=== PATIENT | male | born 1990 | race Caucasian/White ===

== ENCOUNTER 2017-01-24 13:54 | Emergency (ER) | payer SELFPAY ==
--- NOTE | ~2017-01-24 | CT2 ---
[facility] A Service of [facility] RADIOLOGY TEXT RESULTS PATIENT: GEORGIA ARANA LOCATION: SED : [birth year] UNIT #: [id number] AGE: [address]: Steve Burns MD SEX: M ORDER DR: [id number] [place] [id number] MR#: [id number] Acc #: [id number] NAME: GEORGIA ARANA : 1990 SEX: M STUDY DATE/TIME: 01/24/2017 15:28 UNIT: SED ROOM: STUDY DESCRIPTION: CT Abd and Pelv W Cont Attending Physician: Steve Burns M.D. Ordering Physician: Steve Burns M.D. Primary Care Physician: No Primary Care Physician MEDICAL IMAGING REPORT This report is preliminary unless electronic signature is present. EXAM CT abdomen and pelvis with contrast INDICATIONS Umbilical region pain since last night. PROCEDURE Contrast-enhanced CT abdomen and pelvis. This CT exam was performed with one or more of the following radiation dose reduction techniques: automatic exposure control, adjustment of mA and/or kV according to patient size, and iterative reconstruction. COMPARISON None FINDINGS ABDOMEN WITH CONTRAST: Included lung bases are clear. Liver, spleen, kidneys, adrenal glands, pancreas, gallbladder unremarkable. Bowel loops are nondilated. Appendix is normal. PELVIS WITH CONTRAST: No pelvic mass or fluid. No evidence for umbilical hernia. No aggressive appearing bone lesion. IMPRESSION 1. No acute findings. 2. Normal appendix. 3. No evidence for umbilical hernia or periumbilical inflammatory change. Dictated by... Kelvin Del Real M.D. [facility] A Service of [facility] RADIOLOGY TEXT RESULTS PATIENT: GEORGIA ARANA LOCATION: SED : [birth year] UNIT #: [id number] AGE: [address]: Steve Burns MD SEX: M ORDER DR: THIS IS AN ELECTRONICALLY VERIFIED REPORT Kelvin Del Real M.D. at 01/27/2017 7:11 AM Maki TD: 01/24/2017 18:28 JOB #: [id number] MEDICAL IMAGING REPORT Page 1 of 1
[~2017-01-24 13:54] MED LIST: AMOXICILLIN PO; AMOXICILLIN875 MG PO; BACTRIM DS TABL1 TA1 PO; IBUPROFEN800 MG PO; ILOTYCIN1 G1 OD; KEFLEX PO; MEDROL4 MG/DOSE- PO; MOTRIN100 MG/5 M PO; MOTRIN600 M1 PO; NO MEDICATIONS; NORCO1 TAB 10/3 PO; PERCOCET 5/321 UDTAB PO; ROBAXIN 750750 M1 PO; ROBITUSSIN COUG1 CAP PO; ROXICODONE5 MG/5 ML PO; TYLENOL325 MG/10. PO; ZOFRAN PO
[2017-01-24 14:42] LABS: BASOPHIL% 0.5 % (0-2.5); DIFF IND NO; EOSINOPHIL# 0.2 X10e3 (0-0.7); EOSINOPHIL% 1.8 % (0.0-7.0); HEMATOCRIT 46.2 % (38.0-50.0); HEMOGLOBIN 16.3 gm/dL (13.0-16.0); LYMPHOCYTE# 2.6 X10e3 (1.0-3.5); LYMPHOCYTE% 29.5 % (17.0-45.0); MEAN CELL VOLUME 87.2 FL (83-96); MEAN CORPUSCULAR HEMOGLOBIN 30.7 PG (28-34); MEAN CORPUSCULAR HGB CONC 35.2 g/dL (30-36); MEAN PLATELET VOLUME 8.6 FL (6.5-11.5); MONOCYTE# 0.7 X10e3 (0-1.0); MONOCYTE% 8.2 % (3.0-12.0); NEUTROPHIL# 5.2 X10e3 (1.5-7.1); PLATELET COUNT 292 X10e3 (140-420); RED BLOOD COUNT 5.29 X10e (3.90-5.60); RED CELL DISTRIBUTION WIDTH 12.3 % (11.0-15.5); WHITE BLOOD COUNT 8.7 X10e3 (4.0-10.5)
[2017-01-24 14:50] LABS: URINE SOURCE CLEAN CATCH
[2017-01-24 14:56] LABS: URINE APPEARANCE CLEAR; URINE BILIRUBIN NEG (NEG); URINE BLOOD NEG (NEG); URINE COLOR YELLOW; URINE GLUCOSE NEG (NORM); URINE KETONE NEG (NEG); URINE LEUKOCYTE ESTERASE NEG (NEG); URINE NITRATE NEG (NEG); URINE PH 6.5 (5-8); URINE PROTEIN NEG (NEG)
[2017-01-24 14:57] LABS: MICRO INDICATED? NO
[2017-01-24 14:58] LABS: ALBUMIN SERUM 4.9 g/dL (3.5-5.0); BILIRUBIN, DIRECT 0.1 mg/dL (0.0-0.2); BILIRUBIN,INDIRECT 0.6 mg/dL (0.0-0.9); BILIRUBIN,TOTAL 0.7 mg/dL (0.2-2.0); BUN/CREATININE RATIO 16.66; CALCIUM SERUM 9.3 mg/dL (8.4-10.2); CREATININE SERUM 0.9 mg/dL (0.6-1.4); GLOM FILT RATE Estimated 118.3 mL/min (>60); POTASSIUM 3.8 mmol/L (3.5-5.1); PROTEIN TOTAL SERUM 7.8 g/dL (6.0-8.3)
== END 2017-01-24 16:13 | disposition home or self-care (01) ==
LOC: SED 13:54
PROVIDERS: Emergency Medicine
DX: R10.84 Generalized abdominal pain (principal); F17.200 Nicotine dependence, unspecified, uncomplicated
CPT/HCPCS: 36415; 74177; 80048; 80076; 81003; 83690; 85025; 96361; 96374; 96375; 99284; J1885; J2405; Q9967